=== PATIENT | female | born 1935 | race Caucasian/White ===

== ENCOUNTER → 2016-06-14 | Outpatient (CLI) | payer MEDICARE, OTHER | LOC: GMAM 17:38 | PROVIDERS: ATTEND Family Medicine | DX: B39.0 Acute pulmonary histoplasmosis capsulati (principal) ==

== ENCOUNTER → 2016-06-30 | Outpatient (CLI) | payer MEDICARE, OTHER ==
--- NOTE | 2016-06-30 16:43 | MRI ---
EXAM DESCRIPTION: MR LUMBAR SPINE WITHOUT IV CONTRAST CLINICAL HISTORY: 80 y/o F, LOWER BACK PAIN COMPARISON: None TECHNIQUE: Multi planar, multi sequence imaging of the lumbar spine was acquired without IV contrast. FINDINGS: Mild levoscoliosis noted. There is asymmetrical intervertebral disc height loss seen at L1-2 which exaggerates the levoscoliosis deformity. Conus terminates at L1-L2 and is unremarkable. L1-L2: Facet degeneration bilaterally. 4 mm circumferential disk osteophyte complex. No spinal canal or neural foraminal narrowing. L2-3: Bilateral facet degeneration. No posterior disk pathology. No spinal canal or neural foraminal narrowing L3-4: Mild facet degeneration and ligamentum flavum thickening. The midline diameter of the spinal canal is mildly narrowed to 9 mm. Bilateral neural foramen are unremarkable. L4-5: There is severe facet degeneration and ligamentum flavum thickening. 4 mm circumferential disc bulge noted. The midline diameter of the spinal canal is narrowed to a severely stenotic 5 mm. Mild bilateral neural foraminal narrowing noted. L5-S1: Severe facet degeneration and ligamentum flavum thickening. The midline diameter of the spinal canal is narrowed to approximately 8 mm. There is left neural foraminal narrowing. The right neural foramen is unremarkable. IMPRESSION: Today's exam demonstrates multilevel degenerative changes most pronounced at L4-5 and L5-S1. At these levels there are circumferential disk bulges along with severe facet degeneration and ligamentum flavum thickening. These findings reduce the AP diameter spinal canal at L4-5 and 5 mm and at L5-S1 to 8 mm. Multilevel neural foraminal narrowing, but no exiting nerve root contact. Electronically signed by: You Pinedo MD 06/30/2016 16:41
== END ==
LOC: MRI 09:43
PROVIDERS: ATTEND Family Medicine
DX: M54.5 Low back pain (principal); M12.88 Other specific arthropathies, not elsewhere classified, other specified site; M51.87 Other intervertebral disc disorders, lumbosacral region

== ENCOUNTER 2016-07-07 05:58 | Day surgery (SDC) | payer MEDICARE, OTHER ==
--- NOTE | 2016-06-30 11:59 | RAD ---
EXAM DESCRIPTION: XR CHEST 2 VIEWS CLINICAL HISTORY: Pre-op abdominal surgery COMPARISON: None Available. TECHNIQUE: PA/lateral FINDINGS: Probable left ventricular hypertrophy. . The lungs are clear. Eventration of the right hemidiaphragm. There is no effusion. IMPRESSION: No acute findings on today's study. Electronically signed by: You Pinedo MD 06/30/2016 11:58
[2016-07-07] MEDS ORDERED: ceFAZolin SODIUM 1 GM VIAL ONE ×2 (07:00→07:21)
[2016-07-07] MEDS ORDERED: PROPOFOL 200 MG/20 ML VIAL IV ONE (07:00)
[2016-07-07] MEDS ORDERED: LIDOCAINE 1% 10 ML VIAL INJ ONE (07:00)
[2016-07-07] MEDS ORDERED: SODIUM BICARBONATE VIAL 50 MEQ/50 ML VIAL ONE (07:13)
[2016-07-07] MEDS ORDERED: LIDOCAINE 1% 50 ML VIAL INJ ONE (07:13)
[2016-07-07] MEDS ORDERED: LACTATED RINGERS 1,000 ML ONE (07:17)
[2016-07-07] MEDS ORDERED: SODIUM CHL 0.9% 50ML MIN-BAG+ 50 ML IVPB ONE (07:21)
[2016-07-07] MEDS ORDERED: fentaNYL CITRATE INJ 50 MCG/ML AMP ONE (09:58)
[2016-07-07] MEDS ORDERED: MIDAZOLAM INJ 5 MG/5 ML VIAL ONE (09:58)
[2016-07-07] MEDS ORDERED: ceFAZolin SODIUM 1 GM VIAL IVPB ONE ×2 (10:00→11:04)
[2016-07-07 10:19] VITALS: O2SAT 98
--- NOTE | 2016-07-07 11:38 | MAM ---
EXAM DESCRIPTION: MAMMO BREAST NEEDLE LOCALIZATION UNILATERAL CLINICAL HISTORY: Indeterminate microcalcifications. Right breast 10 o'clock. COMPARISON: Diagnostic evaluation 05/26/2016. TECHNIQUE: Mammographic guidance was utilized. Microcalcifications were localized, skin prepped and infiltrated with anesthetic and Ghiatas needle and wire localization achieved. Wire localization is confirmed as being appropriate with respect to the microcalcifications with two view full field digital mammogram. The images were reviewed with the surgeon preoperatively. Specimen radiograph confirms removal of the microcalcifications. Findings were communicated to the operating suite. FINDINGS: Technically successful mammographic wire localization indeterminate microcalcifications right breast 10 o'clock. Pathology is currently pending. IMPRESSION: Technically successful pre-surgical localization microcalcifications right breast. RECOMMENDATION: FOLLOW-UP: Will be determined by pathologic findings. Benign fibrocystic change should be followed up with a six-month mammogram. Malignant findings should be surgically managed. According to the [employer], yearly mammograms are recommended starting at age 40 and continuing as long as a woman is in good health. Any breast change noted on a breast self-exam should be reported promptly to the patient's healthcare provider. Breast MRI is recommended for women with an approximately 20-25% or greater lifetime risk of breast cancer, including women with a strong family history of breast or ovarian cancer and women who have been treated for Hodgkin's disease. Electronically signed by: Laura Carrizales 07/07/2016 11:37
[2016-07-07 12:35] VITALS: BP 197/90; TEMP 97
--- NOTE | 2016-07-07 13:24 | OP ---
DATE OF PROCEDURE: 07/07/16 PREOPERATIVE DIAGNOSIS: 1. Abnormal mammogram on the right with microcalcifications. POSTOPERATIVE DIAGNOSIS: 1. Abnormal mammogram on the right with microcalcifications, pending path report. PROCEDURE: 1. Excision of right breast lesion after needle localization. SURGEON: Jordy Tinajero MD. ROLLER SETTER: None. ANESTHESIA: Local infiltration of 1% lidocaine with bicarb and IV sedation by Anesthesia. INDICATION: The patient is a 80-year-old female who has been followed for calcifications they have seen to progress. She was brought to the Surgical Suite today for needle localized excision of the area after the risks, benefits and alternatives to the procedure including needle core biopsy, needle suction biopsy and the needle localization. She was brought the Surgical Suite after she had selected needle localization. FINDINGS: The guidewire was identified in and mainly anterior to the microcalcifications. The specimen radiograph shows the microcalcifications along with the guidewire. Also, the lesion was marked on the medial aspect, inferior aspect, and anterior aspect with sutures. PROCEDURE: After the patient underwent needle localization in Radiology, she was brought to the Surgical Suite and placed in the supine position. She was prepped and draped in the usual sterile manner. A surgical time-out was taken. The radial incision was made medial to the guidewire insertion site, first with a marking pen and then with infiltration of anesthesia. The skin was incised with a knife and then dissection was carried down through the skin using electrocautery. Eventually the guidewire was identified. It was divided lateral to the thickened area of the guidewire and then using electrocautery, the tissue surrounding the guidewire and somewhat deeper, larger portion posterior to the guidewire was excised and marked with suture on the medial aspect, anterior aspect, and inferior aspect. It was then sent for radiologic evaluation and after we were informed that the specimen was good, we irrigated the wound. Hemostasis was obtained with electrocautery. It was then closed in layers with 3-0 Vicryl and then skin edges were approximated with 4-0 Vicryl subcuticular sutures, benzoin, and Steri-Strips. Sterile pressure dressing was applied and she was wrapped with an Vadim. She was then awakened and taken to the Ambulatory Unit in stable condition. Estimated blood loss was less than 25 mL. All sponge, needle and instrument counts were correct. #[id number] [facility]
== END 2016-07-07 12:30 | disposition home or self-care (01) ==
LOC: AMB 05:58
PROVIDERS: ATTEND Surgery
DX: N60.91 Unspecified benign mammary dysplasia of right breast (principal); R92.0 Mammographic microcalcification found on diagnostic imaging of breast; R94.31 Abnormal electrocardiogram [ECG] [EKG]; I25.10 Atherosclerotic heart disease of native coronary artery without angina pectoris; Z95.5 Presence of coronary angioplasty implant and graft; K21.9 Gastro-esophageal reflux disease without esophagitis; I12.9 Hypertensive chronic kidney disease with stage 1 through stage 4 chronic kidney disease, or unspecified chronic kidney disease; N18.9 Chronic kidney disease, unspecified; F41.8 Other specified anxiety disorders; E78.5 Hyperlipidemia, unspecified; Z96.659 Presence of unspecified artificial knee joint; Z88.2 Allergy status to sulfonamides; Z88.8 Allergy status to other drugs, medicaments and biological substances; Z79.02 Long term (current) use of antithrombotics/antiplatelets; Z79.82 Long term (current) use of aspirin; Z79.899 Other long term (current) drug therapy
CPT/HCPCS: 00400; 19120; 36415; 71020; 80048; 81001; 85025; 88307; 88341; 88342; 88360; 93005; J0690; J2250; J3010; J3490; J7050; J7120

== ENCOUNTER → 2016-10-27 | Outpatient (CLI) | payer MEDICARE, OTHER ==
--- NOTE | 2016-10-27 13:37 | MAM ---
History: Status post excisional biopsy right breast, benign. Six-month follow-up. DATE OF SERVICE: 10/27/2016 Services provided: Full field digital diagnostic right mammography. CAD, the images were reviewed with R2 computer aided detection. FINDINGS: Routine and true lateral views are obtained and compared with preoperative 2016 exam. Previously described cluster of microcalcifications in the outer right breast have been removed. Today's exam demonstrates no dominant mass, architectural distortion or persistent clustered microcalcifications. A retroareolar right 11:00 nodule is stable and unchanged since 2011. IMPRESSION: Benign exam. No mammographic evidence for malignancy in the right breast. Recommendation: Bilateral mammography, due in April. Findings and recommendations were communicated to the patient. BIRAD CATEGORY: 2 BENIGN Electronically signed by: Laura Carrizales MD 10/27/2016 1:36 PM CDT
== END | disposition home or self-care (01) ==
LOC: MAMMO 12:57
PROVIDERS: ATTEND Surgery
DX: N63 Unspecified lump in breast (principal)

== ENCOUNTER → 2016-11-02 | Outpatient (CLI) | payer MEDICARE, OTHER | END | disposition home or self-care (01) | LOC: GMAM 10:33 | PROVIDERS: ATTEND Family Medicine | DX: R53.83 Other fatigue (principal) ==

== ENCOUNTER → 2016-11-09 | Outpatient (CLI) | payer MEDICARE, OTHER | END | disposition home or self-care (01) | LOC: GMAM 15:07 | PROVIDERS: ATTEND Family Medicine | DX: D64.9 Anemia, unspecified (principal) ==

== ENCOUNTER → 2016-12-26 | Outpatient (CLI) | payer MEDICARE, OTHER | LOC: GMAM 15:05 | PROVIDERS: ATTEND Family Medicine | DX: E03.9 Hypothyroidism, unspecified (principal) ==

== ENCOUNTER → 2016-12-28 | Outpatient (CLI) | payer MEDICARE, OTHER | LOC: LAB.O 14:26 | PROVIDERS: ATTEND Urology | DX: R31.9 Hematuria, unspecified (principal) ==

== ENCOUNTER → 2017-01-17 | Outpatient (CLI) | payer MEDICARE, OTHER | END | disposition home or self-care (01) | LOC: GMAM 11:11 | PROVIDERS: ATTEND Family Medicine | DX: D64.9 Anemia, unspecified (principal); N39.0 Urinary tract infection, site not specified ==

== ENCOUNTER → 2017-04-24 | Outpatient (CLI) | payer MEDICARE, OTHER | END | disposition home or self-care (01) | LOC: GMAM 14:10 | PROVIDERS: ATTEND Family Medicine | DX: E03.9 Hypothyroidism, unspecified (principal); N30.00 Acute cystitis without hematuria ==

== ENCOUNTER → 2017-04-24 | Outpatient (CLI) | payer MEDICARE, OTHER | END | disposition home or self-care (01) | LOC: GMA 19:30 | PROVIDERS: ATTEND Physician Assistant | DX: N30.00 Acute cystitis without hematuria (principal) ==

== ENCOUNTER → 2017-05-30 | Outpatient (CLI) | payer MEDICARE, OTHER | END | disposition home or self-care (01) | LOC: GMA 11:16 | PROVIDERS: ATTEND Nurse Practitioner Family | DX: N30.00 Acute cystitis without hematuria (principal) ==

== ENCOUNTER → 2017-05-31 | Outpatient (CLI) | payer MEDICARE, OTHER | END | disposition home or self-care (01) | LOC: MAMMO 13:44 | PROVIDERS: ATTEND Family Medicine | DX: Z12.31 Encounter for screening mammogram for malignant neoplasm of breast (principal) | CPT/HCPCS: 77063; G0202 ==

== ENCOUNTER 2017-07-05 16:59 | Emergency (ER) | payer MEDICARE, OTHER ==
[2017-07-05] MEDS ORDERED: SODIUM CHLORIDE 0.9% 1000ML 1,000 ML IVS ONE (17:27)
--- NOTE | 2017-07-05 17:30 | ED.PDOC ---
History of Present Illness - General Chief Complaint: General Stated Complaint: WEAKNESS DIZZINESS DIARRHEA AFTER ANTIBIOTICS Time Seen by Provider: 07/05/17 17:26 Source: patient, RN notes reviewed, Vital Signs reviewed Additional Information: 81 YEAR OLD WHO HAS KNOWN HISTORY OF HYPERTENSION PRESENTS WITH WEAKNESS DIARRHEA DRY MOUTH AFTER TAKING 2 COURSES OF ANTIBIOTICS IN THE PAST 10 DAYS MACROBID FOR UTI AND Z SADIE FOR STREP THROAT SHE HAS NO FEVER CHILLS NO BLOOD OR MUCOUS IN STOOL - History of Present Illness Timing/Duration: 1 week Improving Factors: nothing Worsening Factors: medication Associated Symptoms: malaise, weakness Allergies/Adverse Reactions: Allergies Morphine Adverse Reaction (Mild, Verified 04/13/14 15:59) Pt reports "makes me crazy." Home Medications: Ambulatory Orders Gabapentin 600 mg PO BEDTIME 10/25/12 Hydrocod/APAP 5/325 (ER Disp) [[place] 5/325 ER Dispense #3 tablets] 1 ea PO PRN PRN 10/25/12 Metoprolol Tartrate [Lopressor] 12.5 mg PO BID 10/25/12 Omeprazole [Prilosec] 20 mg PO PRN 10/25/12 Zolpidem Tartrate [Ambien] 2.5 mg PO BEDTIME 10/25/12 Aspirin [Baby Aspirin] 81 mg PO DAILY 04/13/14 Duloxetine HCl [Cymbalta] 60 mg PO BID 04/13/14 Levetiracetam [Keppra] 500 mg PO DAILY 04/13/14 Cephalexin 500 mg PO BEDTIME 11/03/14 Cetirizine HCl [Zyrtec] 10 mg PO BEDTIME 11/03/14 Clopidogrel Bisulfate [Plavix] 75 mg PO BEDTIME 08/07/15 Rosuvastatin Calcium [Crestor] 10 mg PO BEDTIME 08/07/15 Albuterol Sulfate [Proair Hfa] 2 puff INH PRN PRN 01/05/16 Cholecalciferol [Vitamin D3] 1,000 unit PO DAILY 06/30/16 Fexofenadine HCl [June Allergy] 180 mg PO BEDTIME 06/30/16 Probiotic Product [Probiotic] 1 tab PO DAILY 06/30/16 Tramadol HCl [Ultram] 50 mg PO PRN 06/30/16 Review of Systems - Review of Systems Constitutional: States: weakness EENTM: States: no symptoms reported Respiratory: States: no symptoms reported Cardiology: States: no symptoms reported Gastrointestinal/Abdominal: States: no symptoms reported Genitourinary: States: no symptoms reported Musculoskeletal: States: no symptoms reported Skin: States: no symptoms reported Neurological: States: no symptoms reported Endocrine: States: no symptoms reported Hematologic/Lymphatic: States: no symptoms reported Past Medical History (General) - Patient Medical History Hx Seizures: Yes Hx Stroke: No Hx Dementia: Yes Hx Asthma: No Hx of COPD: No Hx Cardiac Disorders: Yes - OK Hx Congestive Heart Failure: No Hx Pacemaker: No Hx Hypertension: Yes Hx Thyroid Disease: No Hx Diabetes: No Hx Gastroesophageal Reflux: Yes Hx Renal Disease: No Hx Cancer: No Hx of HIV: No Hx Hepatitis C: No - Vaccination History Hx Tetanus, Diphtheria Vaccination: No Hx Influenza Vaccination: Yes Hx Pneumococcal Vaccination: No - Social History Hx Tobacco Use: No Hx Chewing Tobacco Use: No Hx Alcohol Use: No Hx Substance Use: No Hx Substance Use Treatment: No Hx Depression: No Hx Physical Abuse: No Hx Emotional Abuse: No Hx Suspected Abuse: No - Female History Patient : No Family Medical History - Family History Mother Family History: Unknown Physical Exam - Physical Exam General Appearance: Alert, Comfortable Eye Exam: bilateral normal Ears, Nose, Throat: hearing grossly normal, normal ENT inspection, normal pharynx Neck: non-tender, full range of motion, supple Respiratory: chest non-tender, lungs clear, normal breath sounds, no respiratory distress, no accessory muscle use Cardiovascular/Chest: normal peripheral pulses, regular rate, rhythm, no edema, no gallop, no JVD Peripheral Pulses: radial,right: 2+, radial,left: 2+, femoral,right: 2+, femoral ,left: 2+, popliteal,right: 2+, popliteal,left: 2+ Gastrointestinal/Abdominal: normal bowel sounds, non tender, soft Back Exam: normal inspection, no CVA tenderness Extremity: normal range of motion, non-tender Departure - Departure Clinical Impression: Dehydration symptoms, Meningitis Time of Disposition: 19:27 Disposition: Discharge to Home or Self Care Condition: Good Departure Forms: ED Discharge - Pt. Copy, Patient Portal Self Enrollment Activity: increase activity as tolerated, walking as tolerated Referrals: Sage Presley MD [Primary Care Provider] - 1-2 Weeks Home Medications: Ambulatory Orders Gabapentin 600 mg PO BEDTIME 10/25/12 Hydrocod/APAP 5/325 (ER Disp) [[place] 5/325 ER Dispense #3 tablets] 1 ea PO PRN PRN 10/25/12 Metoprolol Tartrate [Lopressor] 12.5 mg PO BID 10/25/12 Omeprazole [Prilosec] 20 mg PO PRN 10/25/12 Zolpidem Tartrate [Ambien] 2.5 mg PO BEDTIME 10/25/12 Aspirin [Baby Aspirin] 81 mg PO DAILY 04/13/14 Duloxetine HCl [Cymbalta] 60 mg PO BID 04/13/14 Levetiracetam [Keppra] 500 mg PO DAILY 04/13/14 Cephalexin 500 mg PO BEDTIME 11/03/14 Cetirizine HCl [Zyrtec] 10 mg PO BEDTIME 11/03/14 Clopidogrel Bisulfate [Plavix] 75 mg PO BEDTIME 08/07/15 Rosuvastatin Calcium [Crestor] 10 mg PO BEDTIME 08/07/15 Albuterol Sulfate [Proair Hfa] 2 puff INH PRN PRN 01/05/16 Cholecalciferol [Vitamin D3] 1,000 unit PO DAILY 06/30/16 Fexofenadine HCl [June Allergy] 180 mg PO BEDTIME 06/30/16 Probiotic Product [Probiotic] 1 tab PO DAILY 06/30/16 Tramadol HCl [Ultram] 50 mg PO PRN 06/30/16
[2017-07-05 19:24] VITALS: TEMP 97.4
[2017-07-05 19:50] VITALS: BP 207/93; O2SAT 98
== END 2017-07-05 20:04 | disposition home or self-care (01) ==
LOC: ER 16:59
DX: E86.0 Dehydration (principal); G03.9 Meningitis, unspecified; I25.2 Old myocardial infarction; K21.9 Gastro-esophageal reflux disease without esophagitis; F03.90 Unspecified dementia, unspecified severity, without behavioral disturbance, psychotic disturbance, mood disturbance, and anxiety; Z79.899 Other long term (current) drug therapy; Z79.02 Long term (current) use of antithrombotics/antiplatelets
CPT/HCPCS: 36415; 80048; 85025; J7030